=== PATIENT | female | born 2000 | race African-American/Black ===

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

== ENCOUNTER 2023-09-28 12:26 | Emergency (ER) | payer SELFPAY | END 2023-09-28 13:03 | disposition home or self-care (01) | LOC: MW.ED 12:26 | DX: T78.40XA Allergy, unspecified, initial encounter (principal); Z75.8 Other problems related to medical facilities and other health care | CPT/HCPCS: 99282; 99283 ==

== ENCOUNTER 2024-10-02 20:16 | Emergency (ER) | payer SELFPAY ==
[2024-10-02 20:48] LABS: APPEARANCE,URINE CLEAR; GLUCOSE,URINE NEGATIVE (NEGATIVE); OCCULT BLOOD,URINE NEGATIVE (NEGATIVE)
[2024-10-02 21:55] LABS: CANDIDA DNA PROBE NEGATIVE (NEGATIVE); GARDNERELLA DNA PROBE POSITIVE (NEGATIVE); TRICHOMONAS DNA PROBE NEGATIVE (NEGATIVE)
== END 2024-10-02 22:35 | disposition home or self-care (01) ==
LOC: MW.ED 20:16
DX: N76.0 Acute vaginitis (principal); Z75.3 Unavailability and inaccessibility of health-care facilities
CPT/HCPCS: 81003; 81025; 87480; 87510; 87660; 99283; A9270